=== PATIENT | female | born 1930 | race Caucasian/White ===

== ENCOUNTER 2017-12-13 04:47 | Emergency (ER) | payer MEDICARE, OTHER ==
[2017-12-13 05:01] VITALS: BP 149/65; PULSE 48; RESP 20; TEMP 97.7; O2SAT 100
[2017-12-13] MEDS ORDERED: ASPIRIN 81 MG CHEW TAB ONE (05:06)
[2017-12-13] MEDS ORDERED: NITROGLYCERIN 0.4 MG SL 25 TABS/BTL SL ONE (05:15)
[2017-12-13] MEDS ORDERED: HEPARIN SODIUM - IV 10,000 UNITS/10 ML VIAL IV ONE ×2 (05:15→05:30)
[2017-12-13] MEDS ORDERED: NITROGLYCERIN 2% OINT 1 GM PACKET TOPICAL ONE (05:15)
[2017-12-13] MEDS ORDERED: ASPIRIN 81 MG CHEW TAB CHEW ONE (05:15)
[2017-12-13] MEDS ORDERED: HEPARIN-D5W 25,000 U/250 ML 250 ML IV PRN (05:15)
[2017-12-13 05:23] LABS: HEMATOCRIT 38.4 % (35.0-46.0); HEMOGLOBIN 12.9 GM/DL (11.6-15.3); MEAN CELL VOLUME 95.9 FL (80.0-100.0); MEAN CORPUSCULAR HEMOGLOBIN 32.3 PG (27.0-34.0); MEAN CORPUSCULAR HGB CONC 33.7 % (32.0-36.0); MEAN PLATELET VOLUME 10.7 FL (7.0-11.0); PLATELET COUNT 186 TH/MM3 (150-450); RED BLOOD COUNT 4.01 MIL/MM3 (4.00-5.30); RED CELL DISTRIBUTION WIDTH 14.3 % (11.6-17.2); WHITE BLOOD COUNT 7.3 TH/MM3 (4.0-11.0)
[2017-12-13 05:35] LABS: PROTHROMBIN TIME - PATIENT 10.6 SEC (9.8-11.6)
[2017-12-13 05:50] LABS: ALBUMIN 3.1 GM/DL (3.4-5.0); ALKALINE PHOSPHATASE 70 U/L (45-117); ALT (GPT) 28 U/L (10-53); AST (GOT) 30 U/L (15-37); BICARBONATE 27.6 MEQ/L (21.0-32.0); BLOOD UREA NITROGEN 25 MG/DL (7-18); CALCIUM 9.4 MG/DL (8.5-10.1); CHLORIDE 108 MEQ/L (98-107); CREATININE 1.08 MG/DL (0.50-1.00); GLOMERULAR FILTRATION RATE 48 ML/MIN (>89); GLUCOSE,RANDOM 101 MG/DL (74-106); SODIUM (NA) 141 MEQ/L (136-145); TOTAL BILIRUBIN ADULT 0.5 MG/DL (0.2-1.0); TOTAL PROTEIN 6.3 GM/DL (6.4-8.2); TROPONIN I 0.04 NG/ML (0.02-0.05)
--- NOTE | 2017-12-13 06:42 | PD ---
HPI Chief Complaint: Chest Pain Time Seen by Provider: 05:00 Travel History International Travel<30 days: No Contact w/Intl Traveler<30days: No Traveled to known affect area: No History of Present Illness HPI Patient is a 87-year-old female living in a half-way she was called paramedics because she had right-sided chest pain and was walking around the floors of the half-way complaining of chest pain paramedics arrived they did EKG twelve-lead they thought they saw ST elevations in inferior leads lead II, III and aVF. Patient is completely pain-free vitals within normal limits she was not hypertensive she is not tachycardic and she had no signs of ischemia no nausea no vomiting patient is pleasantly demented and denied chest pain at all repeatedly asked she has no chest pain we do an EKG that shows ST elevations in V4 V5. There were no reciprocal depressions anywhere. I called Dr. Kent's french instructor. He thinks that intervention would be extremely in the pain-free 87-year-old female. Call the family daughter arrives bedside and decides that they would like medical management. Aspirin for 325 is given. And labs are sent family is discussing whether they would like to send her back to the half-way without intervention without hospitalization PFSH Past Medical History High Cholesterol: Yes Dementia: Yes Diabetes: Yes Patient Takes Glucophage: Yes Genitourinary: Yes (HYDRONEPHROSIS) Hypertension: Yes Musculoskeletal: Yes (PREPATELLAR BURSITIS) Thyroid Disease: Yes (HYPOPARATHYROID) Past Surgical History Surgical History: Unable to Obtain Social History Alcohol Use: No Tobacco Use: No Substance Use: No Allergies-Medications (Allergen,Severity, Reaction): Coded Allergies: Milk Containing Products (Verified Allergy, Unknown, 12/13/17) codeine (Verified Allergy, Unknown, 12/13/17) erythromycin base (Verified Allergy, Unknown, 12/13/17) pollen extracts (Verified Allergy, Unknown, 12/13/17) Review of Systems ROS Limitations: Poor Historian Except as stated in HPI: all other systems reviewed are Neg (dementia advanced) Physical Exam Narrative GENERAL: thin body habitus , pt awake alert Ox1 to her name , does not recognize daughter SKIN: Warm and dry. HEAD: Atraumatic. Normocephalic. EYES: Pupils equal and round. No scleral icterus. No injection or drainage. ENT: No nasal bleeding or discharge. Mucous membranes pink and moist. NECK: Trachea midline. No JVD. CARDIOVASCULAR: Regular rate and rhythm. RESPIRATORY: No accessory muscle use. Clear to auscultation. Breath sounds equal bilaterally. GASTROINTESTINAL: Abdomen soft, non-tender, nondistended. Hepatic and splenic margins not palpable. MUSCULOSKELETAL: Extremities without clubbing, cyanosis, or edema. No obvious deformities. NEUROLOGICAL: Awake and alert. No obvious cranial nerve deficits. Motor grossly within normal limits. Five out of 5 muscle strength in the arms and legs. Normal speech. PSYCHIATRIC: demented OX1 . not to time place and does not recognized her daughter who is bedside Data Data Last Documented VS Vital Signs Date Time Temp Pulse Resp B/P (MAP) Pulse Ox O2 Delivery O2 Flow Rate FiO2 12/13/17 07:51 52 17 122/35 (64) 99 12/13/17 05:01 97.7 Orders Orders Aspirin Chew (Aspirin Chew) (12/13/17 05:06) Heparin Inj (Heparin Inj) (12/13/17 05:15) Heparin Inj (Heparin Inj) (12/13/17 11:15) Heparin Inj (Heparin Inj) (12/13/17 11:15) Heparin-D5w 25,000 U/250 Ml (Heparin-D5w (12/13/17 05:15) Act Partial Throm Time (Ptt) (12/13/17 05:05) Prothrombin Time / Inr (Pt) (12/13/17 05:05) Cbc No Diff, Includes Plts (12/13/17 05:05) Troponin I (12/13/17 05:07) Ckmb (Isoenzyme) Profile (12/13/17 05:07) Comprehensive Metabolic Panel (12/13/17 05:07) Nitroglycerin Sl (Nitrostat Sl) (12/13/17 05:15) Nitroglycerin 2% Oint (Nitroglycerin 2% (12/13/17 05:15) Aspirin Chew (Aspirin Chew) (12/13/17 05:15) Heparin Inj (Heparin Inj) (12/13/17 05:30) Ed Discharge Order (12/13/17 06:44) Electrocardiogram (12/13/17 04:53) Labs Laboratory Tests Test 12/13/17 05:09 White Blood Count 7.3 TH/MM3 Red Blood Count 4.01 MIL/MM3 Hemoglobin 12.9 GM/DL Hematocrit 38.4 % Mean Corpuscular Volume 95.9 FL Mean Corpuscular Hemoglobin 32.3 PG Mean Corpuscular Hemoglobin Concent 33.7 % Red Cell Distribution Width 14.3 % Platelet Count 186 TH/MM3 Mean Platelet Volume 10.7 FL Prothrombin Time 10.6 SEC Prothromb Time International Ratio 1.0 RATIO Activated Partial Thromboplast Time 22.4 SEC Blood Urea Nitrogen 25 MG/DL Creatinine 1.08 MG/DL Random Glucose 101 MG/DL Total Protein 6.3 GM/DL Albumin 3.1 GM/DL Calcium Level 9.4 MG/DL Alkaline Phosphatase 70 U/L Aspartate Amino Transf (AST/SGOT) 30 U/L Alanine Aminotransferase (ALT/SGPT) 28 U/L Total Bilirubin 0.5 MG/DL Sodium Level 141 MEQ/L Potassium Level 4.8 MEQ/L Chloride Level 108 MEQ/L Carbon Dioxide Level 27.6 MEQ/L Anion Gap 5 MEQ/L Estimat Glomerular Filtration Rate 48 ML/MIN Total Creatine Kinase 75 U/L Troponin I 0.04 NG/ML [facility] Medical Decision Making Medical Screen Exam Complete: Yes Emergency Medical Condition: Yes Differential Diagnosis chest pain of PNA vs STEMI vs costochondritis vs dementia and complaint of CP possibly not related to Organic cause, Paramedics 12 lead have slight elevation inferiro leads but in our ER 12 lead EKG shows elevation in V4 V5, pt denies CP repeatedly asked of Chest Pain Narrative Course EKG has elevations in V4 V5 no CP , I call Dr Kent who is on for interventional cards he looks at EKG and feels her age and DNR and advanced dementia and pain free state medical management more indicated than catherization , I will call family to ask if they agree with the plan of conservative managemnt . Daugther arrives and she and her sister are offered option of catheterization vs heparin and asa and obsevartion on tele , The daughters decide they would like to refuse all intervention and return to [place] aand there they will discuss " Do Not Hositalize " order and hospice plan. I speak to both daughters several times one bedside and one on the phone . Pt stable first trop returns 0.04 equivocal . pt family refuses admission and heparinization.. Pt sent via ambulance back to [facility] Diagnosis Primary Impression: Chest pain Patient Instructions: Chest Pain (ED), General Instructions Disposition: 03 DISCHARGE TO SNF Condition: Walter Mauricio MD Dec 13, 2017 06:42
[2017-12-13 07:51] VITALS: BP 122/35
[2017-12-13] MEDS ORDERED: HEPARIN SODIUM - IV 10,000 UNITS/10 ML VIAL IV PRN ×2 (11:15)
--- NOTE | 2017-12-13 21:31 | EKG ---
Date Performed: 12/13/2017 Time Performed: 04:53:52 PTAGE: 87 years EKG: SINUS BRADYCARDIA VOLTAGE CRITERIA FOR LVH ST ELEVATION, CONSIDER ANTERIOR INJURY ACUTE [place] Compared to PREVIOUS TRACING , there is now evidence of ST elevation inferiorly and anteriorly and an terolaterally. Suggestive of an acute myocardial infarction. When compared to the prior study, there are significant changes in the anterior and lateral leads. PREVIOUS TRACIN06/06/1998 09.23.29 DOCTOR: Solitario Ortiz Interpretating Date/Time 12/13/2017 21:30:32
== END 2017-12-13 07:52 ==
LOC: NEDAMB 04:47 → NEPE 07:52
DX: R07.9 Chest pain, unspecified (principal); R00.1 Bradycardia, unspecified; I10 Essential (primary) hypertension; E78.00 Pure hypercholesterolemia, unspecified; E11.9 Type 2 diabetes mellitus without complications; E20.9 Hypoparathyroidism, unspecified; F03.90 Unspecified dementia, unspecified severity, without behavioral disturbance, psychotic disturbance, mood disturbance, and anxiety; Z88.5 Allergy status to narcotic agent; Z88.1 Allergy status to other antibiotic agents
CPT/HCPCS: 80053; 82550; 84484; 85027; 85610; 85730; 93005

== ENCOUNTER 2018-01-17 20:58 | Inpatient (IN) | payer MEDICARE, OTHER ==
[~2018-01-17] VITALS: Ht 154.9 cm; Wt 56.0 kg
[2018-01-17 21:07] VITALS: BP 158/76; PULSE 50; RESP 18; TEMP 98.1; O2SAT 95
[2018-01-17] MEDS ORDERED: ACETAMINOPHEN 500 MG CPLT PO ONE (21:15)
--- NOTE | 2018-01-17 21:16 | PD ---
HPI Chief Complaint: Fall Time Seen by Provider: 21:01 Travel History International Travel<30 days: No Contact w/Intl Traveler<30days: No Traveled to known affect area: No History of Present Illness HPI The patient is a 87-year-old female who presents to the emergency department via EMS after she was found lying prone on the floor at the long term and groaning. The patient has a history of dementia, the patient is unsure if there was any loss of consciousness. The patient was noted to have left facial swelling, some bleeding from the left nare, and some bruising to the left forearm. The patient does not take any anticoagulants according to EMS. The patient does complain of left facial pain and left arm pain. She denies any chest pain, shortness breath, nausea, vomiting, or abdominal pain. She is a somewhat limited historian, but does respond to her name and follows simple commands. Symptoms are moderate. Possibly exacerbated after falling. PFSH Past Medical History High Cholesterol: Yes Dementia: Yes Diabetes: Yes Genitourinary: Yes (HYDRONEPHROSIS) Hypertension: Yes Musculoskeletal: Yes (PREPATELLAR BURSITIS) Thyroid Disease: Yes (HYPOPARATHYROID) Social History Alcohol Use: No Tobacco Use: No Substance Use: No Allergies-Medications (Allergen,Severity, Reaction): Coded Allergies: Milk Containing Products (Verified Allergy, Unknown, 01/17/18) codeine (Verified Allergy, Unknown, 01/17/18) erythromycin base (Verified Allergy, Unknown, 01/17/18) pollen extracts (Verified Allergy, Unknown, 01/17/18) Reported Meds & Prescriptions Reported Meds & Active Scripts Active Mayer (Hydrocodone-Acetaminophen) 5 Mg-325 Mg Tab 1 Tab PO Q6H PRN Claritin (Loratadine) 10 Mg Cap 10 Mg PO DAILY 10 Days Augmentin Es-600 Liq (Amoxicillin-Clavulanate Liq) 600-42.9 Mg/5 Ml Susp 600 Mg PO BID 10 Days Not for adults, adolescents, or children >/= 40kg. Not interchangeable with 200 mg/5 mL or 400 mg/5 mL due to clavulanic acid. Reported Melatonin 5 Mg Tab 3 Mg PO HS Pravastatin 40 Mg Tab 40 Mg PO DAILY Nuedexta 20-10 mg (Dextromethorphan HBr-Quinidine) 20 Mg-10 Mg Cap 1 Cap PO BID Buspirone (Buspirone HCl) 10 Mg Tab 20 Mg PO BID Metformin (Metformin HCl) 500 Mg Tab 500 Mg PO DAILY With a meal Lisinopril-Hctz 20-12.5 Mg Tab 1 Tab PO DAILY Aspirin 81 Mg Chew 81 Mg CHEW DAILY Amlodipine (Amlodipine Besylate) 2.5 Mg Tab 2.5 Mg PO DAILY Review of Systems Except as stated in HPI: all other systems reviewed are Neg HENT: Positive: Headaches, Nosebleed, Other (Facial pain), No: Neck Pain Cardiovascular: No: Chest Pain or Discomfort Respiratory: No: Shortness of Breath Gastrointestinal: No: Nausea, Vomiting, Abdominal Pain Musculoskeletal: Positive: Pain (Left arm pain and bruising) Neurologic: Positive: Headache, No: Change in Mentation, Paresthesia, Sensory Disturbance Physical Exam Narrative GENERAL: Awake, alert, pleasant 87-year-old female who appears her stated age and is in no acute respiratory distress. SKIN: Focused skin assessment warm/dry. HEAD: Left facial edema noted around the left periorbital area and left maxilla and mandible.. EYES: Pupils equal and round. Pupils are 2 mm bilateral and reactive. Unable to assess EOMs secondary to swelling, but no visible hyphema. Significant left periorbital edema noted. ENT: No visible septal hematoma. Dry blood in the left nare. NECK: Trachea midline. No JVD. Cervical collar in place. CARDIOVASCULAR: Regular, bradycardic with a heart rate in the 40s. RESPIRATORY: No accessory muscle use. Clear to auscultation. Breath sounds equal bilaterally. GASTROINTESTINAL: Abdomen soft, non-tender, nondistended. No rebound tenderness. MUSCULOSKELETAL: Hematoma noted to the left humerus. Patient is able to abduct and extend the left shoulder as well as flex and extend the left elbow. NEUROLOGICAL: Awake and alert. No obvious cranial nerve deficits. Motor grossly within normal limits. Normal speech. Patient is oriented to her name and follow simple commands, but does not know the month or year. Back: No tenderness over the thoracic or lumbar vertebrae. PSYCHIATRIC: Appropriate mood and affect; insight and judgment normal. Data Data Last Documented VS Vital Signs Date Time Temp Pulse Resp B/P (MAP) Pulse Ox O2 Delivery O2 Flow Rate FiO2 01/17/18 21:16 49 15 96 Room Air 01/17/18 21:07 98.1 158/76 (103) Orders Orders Ct Facial Bones W/O Iv Cont (01/17/18 ) Ct Brain W/O Iv Contrast(Rout) (01/17/18 ) Ct Cerv Spine W/O Contrast (01/17/18 ) Humerus (Min 2vws) (01/17/18 ) Complete Blood Count With Diff (01/17/18 21:07) Basic Metabolic Panel (Bmp) (01/17/18 21:07) Creatine Kinase (Cpk) (01/17/18 21:07) Acetaminophen (Tylenol) (01/17/18 21:15) Acetamin-Hydrocod 325-5 Mg (Mayer 5-325 (01/17/18 22:30) Ondansetron Inj (Zofran Inj) (01/17/18 22:45) Sodium Chlorid 0.9% 500 Ml Inj (Ns 500 M (01/17/18 22:45) Ondansetron Inj (Zofran Inj) (01/17/18 22:43) Admit Order (Ed Use Only) (01/17/18 22:56) Labs Laboratory Tests Test 01/17/18 21:15 White Blood Count 6.7 TH/MM3 Red Blood Count 4.10 MIL/MM3 Hemoglobin 13.1 GM/DL Hematocrit 39.0 % Mean Corpuscular Volume 95.0 FL Mean Corpuscular Hemoglobin 31.9 PG Mean Corpuscular Hemoglobin Concent 33.6 % Red Cell Distribution Width 13.3 % Platelet Count 163 TH/MM3 Mean Platelet Volume 10.3 FL Neutrophils (%) (Auto) 52.2 % Lymphocytes (%) (Auto) 36.1 % Monocytes (%) (Auto) 7.9 % Eosinophils (%) (Auto) 3.1 % Basophils (%) (Auto) 0.7 % Neutrophils # (Auto) 3.5 TH/MM3 Lymphocytes # (Auto) 2.4 TH/MM3 Monocytes # (Auto) 0.5 TH/MM3 Eosinophils # (Auto) 0.2 TH/MM3 Basophils # (Auto) 0.0 TH/MM3 CBC Comment DIFF FINAL Differential Comment Blood Urea Nitrogen 20 MG/DL Creatinine 1.06 MG/DL Random Glucose 146 MG/DL Calcium Level 9.3 MG/DL Sodium Level 140 MEQ/L Potassium Level 3.9 MEQ/L Chloride Level 102 MEQ/L Carbon Dioxide Level 30.2 MEQ/L Anion Gap 8 MEQ/L Estimat Glomerular Filtration Rate 49 ML/MIN Total Creatine Kinase 76 U/L MDM Medical Decision Making Medical Screen Exam Complete: Yes Emergency Medical Condition: Yes Medical Record Reviewed: Yes Interpretation(s) Laboratory Tests Test 01/17/18 21:15 White Blood Count 6.7 TH/MM3 Red Blood Count 4.10 MIL/MM3 Hemoglobin 13.1 GM/DL Hematocrit 39.0 % Mean Corpuscular Volume 95.0 FL Mean Corpuscular Hemoglobin 31.9 PG Mean Corpuscular Hemoglobin Concent 33.6 % Red Cell Distribution Width 13.3 % Platelet Count 163 TH/MM3 Mean Platelet Volume 10.3 FL Neutrophils (%) (Auto) 52.2 % Lymphocytes (%) (Auto) 36.1 % Monocytes (%) (Auto) 7.9 % Eosinophils (%) (Auto) 3.1 % Basophils (%) (Auto) 0.7 % Neutrophils # (Auto) 3.5 TH/MM3 Lymphocytes # (Auto) 2.4 TH/MM3 Monocytes # (Auto) 0.5 TH/MM3 Eosinophils # (Auto) 0.2 TH/MM3 Basophils # (Auto) 0.0 TH/MM3 CBC Comment DIFF FINAL Differential Comment Blood Urea Nitrogen 20 MG/DL Creatinine 1.06 MG/DL Random Glucose 146 MG/DL Calcium Level 9.3 MG/DL Sodium Level 140 MEQ/L Potassium Level 3.9 MEQ/L Chloride Level 102 MEQ/L Carbon Dioxide Level 30.2 MEQ/L Anion Gap 8 MEQ/L Estimat Glomerular Filtration Rate 49 ML/MIN Total Creatine Kinase 76 U/L Last Impressions Maxillofacial CT 01/17/18 0000 Signed Impressions: Service Date/Time: Wednesday, January 17, 2018 21:25 - CONCLUSION: 1. Displaced fracture through the floor the left orbit with slight herniation of the inferior oblique musculature. 2. Left nasal fracture. Marcelo Cardona MD Humerus X-Ray 01/17/18 0000 Signed Impressions: Service Date/Time: Wednesday, January 17, 2018 21:16 - CONCLUSION: No acute fracture. Marcelo Cardona MD Head CT 01/17/18 0000 Signed Impressions: Service Date/Time: Wednesday, January 17, 2018 21:25 - CONCLUSION: 1. No acute intracranial abnormality. 2. Left nasal fracture. Marcelo Cardona MD Cervical Spine CT 01/17/18 0000 Signed Impressions: Service Date/Time: Wednesday, January 17, 2018 21:25 - CONCLUSION: 1. No fracture or subluxation. 2. Multilevel degenerative changes. 3. Degenerative retrolisthesis C3 on 4 Marcelo Cardona MD Differential Diagnosis Differential diagnosis includes mechanical fall, syncope, closed head injury, intra-cranial hemorrhage, left facial fracture, contusion, hematoma, left humerus fracture, epistaxis, coagulopathy, thrombocytopenia. Narrative Course IV was established, labs are drawn and sent, and the patient was placed on cardiac telemetry monitoring and continuous pulse oximetry monitoring. CT of the brain, facial bones, cervical spine were ordered. X-ray of the left humerus was ordered. CT the brain is negative. CT cervical spine reveals no fracture, cervical collar was removed. CT the facial bones reveals fracture of the left inferior orbital wall with mild herniation of musculature but no impingement. Patient has significant swelling, EOMs were unable to be assessed. The patient does have significant left-sided facial swelling. I doubt acute surgical management with the amount of significant swelling. The patient may benefit from outpatient or maxillofacial evaluation once the swelling has improved. Therefore, the patient will be discharged back to the assisted living facility, is advised to apply ice over the affected area, Augmentin as directed, sinus precautions. I did have a discussion with the family at bedside. I also had a discussion regarding transfer to [facility] for the fracture, however, after discussion it was agreed the patient would follow-up outpatient locally. However, prior to discharge back to the assisted living facility the patient had an episode of emesis. There was blood in the emesis, most likely related to the nosebleed and swallowing of blood. However, she did have several episodes. The patient does live in the assisted living facility, not a full long term. Therefore, the patient will be a 23 hour observation for IV fluids and antiemetics. I discussed the patient with the trauma surgeon, Dr. Robles, and after discussion he states the patient can be admitted to the medical service as it appears it is more related to nausea and vomiting secondary to swallowing of blood and there is no acute surgical management. Therefore, the on-call medical service was paged for observation. Physician Communication Physician Communication The on-call medical service was paged for observation. I discussed the patient with Dr. Bartholomew who agrees with 23 hour observation. Diagnosis Primary Impression: Fracture of inferior orbital wall Qualified Codes: S02.32XA - Fracture of orbital floor, left side, initial encounter for closed fracture Additional Impressions: Traumatic hematoma of face Qualified Codes: S00.83XA - Contusion of other part of head, initial encounter Nasal fracture Qualified Codes: S02.2XXA - Fracture of nasal bones, initial encounter for closed fracture Contusion of left arm Qualified Codes: S40.022A - Contusion of left upper arm, initial encounter Hematemesis Qualified Codes: K92.0 - Hematemesis Admitting Information Admitting Physician Requests: Observation Referrals: Corey Paulino DDS call for appointment Call for an appointment on an outpatient basis to be seen in 1 week Patient Instructions: General Instructions Additional Instructions: Sinus precautions. No blowing nose. Claritin and Augmentin as directed. Apply ice to the left side of the face. Please provide the family a copy of the CT results and the patient a copy of the CT results at discharge. Call on Friday to schedule outpatient follow-up with oromaxillofacial surgery. Mayer as needed for pain. Apply ice to the left side of the face and left arm. Med/Other Pt SpecificInfo: Prescription(s) given Scripts Hydrocodone-Acetaminophen (Mayer) 5 Mg-325 Mg Tab 1 TAB PO Q6H Y for PAIN, #15 TAB 0 Refills Prov: Fabrizio Eldridge MD 01/17/18 Loratadine (Claritin) 10 Mg Cap 10 MG PO DAILY for Allergy Management for 10 Days, #10 CAP 0 Refills Prov: Fabrizio Eldridge MD 01/17/18 Amoxicillin-Clavulanate Liq (Augmentin Es-600 Liq) 600-42.9 Mg/5 Ml Susp 600 MG PO BID for Infection for 10 Days, ML 0 Refills Not for adults, adolescents, or children >/= 40kg. Not interchangeable with 200 mg/5 mL or 400 mg/5 mL due to clavulanic acid. Prov: Fabrizio Eldridge MD 01/17/18 Condition: Stable Fabrizio Eldridge MD Jan 17, 2018 21:16
[2018-01-17 21:27] LABS: AUTOMATED NEUTROPHIL # 3.5 TH/MM3 (1.8-7.7); BASOPHIL % 0.7 % (0.0-2.0); EOSINOPHIL # 0.2 TH/MM3 (0-0.4); EOSINOPHIL % 3.1 % (0.0-4.0); HEMOGLOBIN 13.1 GM/DL (11.6-15.3); LYMPH % 36.1 % (9.0-44.0); LYMPHOCYTE # 2.4 TH/MM3 (1.0-4.8); MEAN CORPUSCULAR HEMOGLOBIN 31.9 PG (27.0-34.0); MEAN CORPUSCULAR HGB CONC 33.6 % (32.0-36.0); MEAN PLATELET VOLUME 10.3 FL (7.0-11.0); MONO % 7.9 % (0.0-8.0); MONOCYTE # 0.5 TH/MM3 (0-0.9); NEUT % 52.2 % (16.0-70.0); PLATELET COUNT 163 TH/MM3 (150-450); RED CELL DISTRIBUTION WIDTH 13.3 % (11.6-17.2); WHITE BLOOD COUNT 6.7 TH/MM3 (4.0-11.0)
[2018-01-17] MEDS ORDERED: PRAV40TA2 PO (21:27)
[2018-01-17] MEDS ORDERED: AMLO2.5T PO (21:27)
[2018-01-17] MEDS ORDERED: ASPI-516 CHEW (21:27)
[2018-01-17] MEDS ORDERED: BUSP10TA PO (21:27)
[2018-01-17] MEDS ORDERED: MELA5 PO (21:27)
[2018-01-17] MEDS ORDERED: LISI20TA PO (21:27)
[2018-01-17] MEDS ORDERED: NUED20CA PO (21:27)
[2018-01-17] MEDS ORDERED: METF500T PO (21:27)
--- NOTE | 2018-01-17 21:41 | RADRPT ---
EXAM DATE/TIME: 01/17/2018 21:16 [facility] COMPARISON: No previous studies available for comparison. INDICATIONS : Pain in left humerus post fall today. MEDICAL HISTORY : Unobtainable. SURGICAL HISTORY : Unobtainable. ENCOUNTER: Initial ACUITY: 1 day PAIN SCORE: Non-responsive. LOCATION: Left Humerus. FINDINGS: Two view examination of the left humerus demonstrates no evidence of fracture or dislocation. Bony m ineralization is normal. Soft tissue swelling. CONCLUSION: No acute fracture. Marcelo Cardona MD on January 17, 2018 at 21:38 Board Certified Radiologist. This report was verified electronically.
--- NOTE | 2018-01-17 21:42 | RADRPT ---
EXAM DATE/TIME: 01/17/2018 21:25 [facility] COMPARISON: CT FACIAL BONES W/O CONTRAST, January 17, 2018, 21:25. INDICATIONS : Trauma. Fell on left side off head. RADIATION DOSE: 56.35 CTDIvol (mGy) MEDICAL HISTORY : Dementia. Hypertension. SURGICAL HISTORY : None. ENCOUNTER: Initial ACUITY: 1 day PAIN SCALE: 0/10 LOCATION: Left cranial TECHNIQUE: Multiple contiguous axial images were obtained of the head. Using automated exposure control and adj ustment of the mA and/or kV according to patient size, radiation dose was kept as low as reasonably a chievable to obtain optimal diagnostic quality images. DICOM format image data is available electro nically for review and comparison. FINDINGS: CEREBRUM: The ventricles are normal for age. No evidence of midline shift, mass lesion, hemorrhage or acute in farction. No extra-axial fluid collections are seen. POSTERIOR FOSSA: The cerebellum and brainstem are intact. The 4th ventricle is midline. The cerebellopontine angle i s unremarkable. EXTRACRANIAL: The visualized portion of the orbits is intact. SKULL: The calvaria is intact. No evidence of skull fracture. Left sided facial soft tissue swelling. Opaci fication left maxillary sinus. Left nasal fracture CONCLUSION: 1. No acute intracranial abnormality. 2. Left nasal fracture. Marcelo Cardona MD on January 17, 2018 at 21:39 Board Certified Radiologist. This report was verified electronically.
--- NOTE | 2018-01-17 21:45 | RADRPT ---
EXAM DATE/TIME: 01/17/2018 21:25 [facility] COMPARISON: No previous studies available for comparison. INDICATIONS : Trauma. Fell on left side of face. RADIATION DOSE: 21.96 CTDIvol (mGy) MEDICAL HISTORY : Dementia. Hypertension. SURGICAL HISTORY : None. ENCOUNTER: Initial ACUITY: 1 day PAIN SCORE: 0/10 LOCATION: Left facial TECHNIQUE: Volumetric scanning of the facial bones was performed. Using automated exposure control and adjustme nt of the mA and/or kV according to patient size, radiation dose was kept as low as reasonably achiev able to obtain optimal diagnostic quality images. DICOM format image data is available electronicall y for review and comparison. FINDINGS: ORBITS: Right orbit intact. Displaced fracture along the floor the left orbit. No impingement upon extraocula r muscles. The inferior oblique musculature slightly herniates through the defect. NASAL BONE: Left nasal fracture slightly depressed. ZYGOMATIC ARCHES: Symmetric without evidence of fracture. SINUSES: The maxillary, ethmoid and frontal sinuses are intact. No air-fluid levels seen. NASAL CAVITY: The nasal septum is intact and midline. The lacrimal ducts are intact. SOFT TISSUES: No radiopaque foreign bodies seen. Left facial soft-tissue swelling/hematoma is seen. INTRACRANIAL: No intracranial air seen. CRIBIFORM PLATE: Grossly intact. CONCLUSION: 1. Displaced fracture through the floor the left orbit with slight herniation of the inferior oblique musculature. 2. Left nasal fracture. Marcelo Cardona MD on January 17, 2018 at 21:40 Board Certified Radiologist. This report was verified electronically.
--- NOTE | 2018-01-17 21:46 | RADRPT ---
EXAM DATE/TIME: 01/17/2018 21:25 [place] COMPARISON: No previous studies available for comparison. INDICATIONS : Trauma. Fall. RADIATION DOSE: 13.52 CTDIvol (mGy) MEDICAL HISTORY : Dementia. Hypertension. SURGICAL HISTORY : None. ENCOUNTER: Initial ACUITY: 1 day PAIN SCALE: 0/10 LOCATION: neck TECHNIQUE: Volumetric scanning of the cervical spine was performed. Multiplanar reconstructions in the sagittal, coronal and oblique axial planes were performed. Using automated exposure control and adjustment o f the mA and/or kV according to patient size, radiation dose was kept as low as reasonably achievable to obtain optimal diagnostic quality images. DICOM format image data is available electronically f or review and comparison. FINDINGS: VERTEBRAE: Normal vertebral body height. Multilevel degenerative changes. ALIGNMENT: Retrolisthesis C3 on 4. C2-C3: The bony spinal canal is normal in size. No evidence of disc bulge or herniation. The neural forami na are bilaterally patent. C3-C4: The bony spinal canal is normal in size. No evidence of disc bulge or herniation. The neural forami na are bilaterally patent. C4-C5: The bony spinal canal is normal in size. No evidence of disc bulge or herniation. The neural forami na are bilaterally patent. C5-C6: The bony spinal canal is normal in size. No evidence of disc bulge or herniation. The neural forami na are bilaterally patent. C6-C7: The bony spinal canal is normal in size. No evidence of disc bulge or herniation. The neural forami na are bilaterally patent. C7-T1: The bony spinal canal is normal in size. No evidence of disc bulge or herniation. The neural forami na are bilaterally patent. CONCLUSION: 1. No fracture or subluxation. 2. Multilevel degenerative changes. 3. Degenerative retrolisthesis C3 on 4 Marcelo Cardona MD on January 17, 2018 at 21:42 Board Certified Radiologist. This report was verified electronically.
[2018-01-17 21:57] LABS: BICARBONATE 30.2 MEQ/L (21.0-32.0); CALCIUM 9.3 MG/DL (8.5-10.1); CREATININE 1.06 MG/DL (0.50-1.00)
[2018-01-17] MEDS ORDERED: AMOXSUS PO (22:23)
[2018-01-17] MEDS ORDERED: NORC5TAB PO (22:23)
[2018-01-17] MEDS ORDERED: CLAR10CA3 PO (22:23)
[2018-01-17] MEDS ORDERED: ACETAMINOPHEN/HYDROcodone 325 MG/5 MG TAB PO ONE (22:30)
[2018-01-17] MEDS ORDERED: ONDANSETRON HCL 4 MG/2 ML VIAL ONE (22:43)
[2018-01-17] MEDS ORDERED: SODIUM CHLORID 0.9% 500 ML INJ 500 ML IV ONE (22:45)
[2018-01-17] MEDS ORDERED: ONDANSETRON HCL 4 MG/2 ML VIAL IV PUSH ONE (22:45)
--- NOTE | 2018-01-17 22:59 | HHI.HP ---
[facility] Service [facility] Primary Care Physician Zita Jacobs MD Admission Diagnosis Inferior orbital wall fracture, hematemesis, epistaxis, CHI Diagnoses: (1) Fall Diagnosis: Principal (2) Orbital floor fracture Diagnosis: Principal (3) Traumatic hematoma of face Diagnosis: Principal (4) Epistaxis Diagnosis: Principal (5) DM (diabetes mellitus) Diagnosis: Principal Travel History International Travel<30 Days: No Contact w/Intl Traveler <30 Da: No Traveled to Known Affected Are: No History of Present Illness This is an 87-year-old female with a PMH of HTN, Hyperlipidemia, DM and Dementia who is brought to the ER by EMS after a fall with significant left- sided facial swelling and hematoma. Patient currently [facility] resident, fall was unwitnessed however patient does not believe she lost consciousness. Not on anticoagulation. On arrival, BP 158/76, HR 50, O2 sat 95% on RA, Afebrile. CBC unremarkable. Chemistry at baseline. CT Head with no acute findings, left nasal fracture. CT C-spine with no acute fracture. CT Maxillofacial with displaced fracture through floor of left orbit with slight herniation of inferior oblique musculature, left nasal fracture. Humerus X-ray no acute fracture. Pt to be d/c'd from ER w/ outpatient ENT follow up as no emergent intervention needed, however had episode of epistaxis w/ subsequent nausea/ vomiting. Pt [facility] resident, unsafe d/c home at this time. Review of Systems Except as stated in HPI: all other systems reviewed are Neg ROS: 14 point review of systems otherwise negative. Past Family Social History Past Medical History PMH: HTN, Hyperlipidemia, DM and Dementia Past Surgical History PAST SURGICAL HISTORY: None Allergies: Coded Allergies: Milk Containing Products (Verified Allergy, Unknown, 01/17/18) codeine (Verified Allergy, Unknown, 01/17/18) erythromycin base (Verified Allergy, Unknown, 01/17/18) pollen extracts (Verified Allergy, Unknown, 01/17/18) Family History PAST FAMILY HISTORY: Reviewed. No h/o DM or CAD Social History PAST SOCIAL HISTORY: Negative for alcohol, tobacco or drugs. Physical Exam Vital Signs Vital Signs Date Time Temp Pulse Resp B/P (MAP) Pulse Ox O2 Delivery O2 Flow Rate FiO2 01/17/18 21:16 49 15 96 Room Air 01/17/18 21:07 98.1 50 18 158/76 (103) 95 Physical Exam PE: GENERAL: Elderly white female in no acute distress. Family at bedside. HEENT: PERRLA, EOMI. No scleral icterus or conjunctival pallor. No lid lag or facial droop. Significant left-sided facial swelling/hematoma due to injury CARDIOVASCULAR: Regular rate and rhythm. No obvious murmurs to auscultation. No chest tenderness to palpation. RESPIRATORY: No obvious rhonchi or wheezing. Clear to auscultation. Breath sounds equal bilaterally. GASTROINTESTINAL: Abdomen soft, non-tender, nondistended. BS normal. MUSCULOSKELETAL: Extremities without clubbing, cyanosis, or edema. No obvious deformities. NEUROLOGICAL: Awake, alert and oriented x4. No focal neurologic deficits. Moving both upper and lower extremities spontaneously. Laboratory Laboratory Tests Test 01/17/18 21:15 White Blood Count 6.7 Red Blood Count 4.10 Hemoglobin 13.1 Hematocrit 39.0 Mean Corpuscular Volume 95.0 Mean Corpuscular Hemoglobin 31.9 Mean Corpuscular Hemoglobin Concent 33.6 Red Cell Distribution Width 13.3 Platelet Count 163 Mean Platelet Volume 10.3 Neutrophils (%) (Auto) 52.2 Lymphocytes (%) (Auto) 36.1 Monocytes (%) (Auto) 7.9 Eosinophils (%) (Auto) 3.1 Basophils (%) (Auto) 0.7 Neutrophils # (Auto) 3.5 Lymphocytes # (Auto) 2.4 Monocytes # (Auto) 0.5 Eosinophils # (Auto) 0.2 Basophils # (Auto) 0.0 CBC Comment DIFF FINAL Differential Comment Blood Urea Nitrogen 20 Creatinine 1.06 Random Glucose 146 Calcium Level 9.3 Sodium Level 140 Potassium Level 3.9 Chloride Level 102 Carbon Dioxide Level 30.2 Anion Gap 8 Estimat Glomerular Filtration Rate 49 Total Creatine Kinase 76 Result Diagram: 01/17/18211401/17/182114 Caprini VTE Risk Assessment Caprini VTE Risk Assessment: No/Low Risk (score <= 1) Caprini Risk Assessment Model Point Value = 1 Point Value = 2 Point Value = 3 Point Value = 5 Age 41-60 Minor surgery BMI > 25 kg/m2 Swollen legs Varicose veins or History of unexplained or recurrent spontaneous Oral contraceptives or hormone replacement Sepsis (< 1 month) Serious lung disease, including pneumonia (< 1 month) Abnormal pulmonary function Acute myocardial infarction Congestive heart failure (< 1 month) History of inflammatory bowel disease Medical patient at bed rest Age 61-74 Arthroscopic surgery Major open surgery (> 45 min) Laparoscopic surgery (> 45 min) Malignancy Confined to bed (> 72 hours) Immobilizing plaster cast Central venous access Age >= 75 History of VTE Family history of VTE Factor V Leiden Prothrombin [id number] Lupus anticoagulant Anticardiolipin antibodies Elevated serum homocysteine Heparin-induced thrombocytopenia Other congenital or acquired thrombophilia Stroke (< 1 month) Elective arthroplasty Hip, pelvis, or leg fracture Acute spinal cord injury (< 1 month) Prophylaxis Regimen Total Risk Factor Score Risk Level Prophylaxis Regimen 0-1 Low Early ambulation 2 Moderate Order ONE of the following: *Sequential Compression Device (SCD) *Heparin 5000 units SQ BID 3-4 Higher Order ONE of the following medications: *Heparin 5000 units SQ TID *Enoxaparin/Lovenox 40 mg SQ daily (WT < 150 kg, CrCl > 30 mL/min) *Enoxaparin/Lovenox 30 mg SQ daily (WT < 150 kg, CrCl > 10-29 mL/min) *Enoxaparin/Lovenox 30 mg SQ BID (WT < 150 kg, CrCl > 30 mL/min) AND/OR *Sequential Compression Device (SCD) 5 or more Highest Order ONE of the following medications: *Heparin 5000 units SQ TID (Preferred with Epidurals) *Enoxaparin/Lovenox 40 mg SQ daily (WT < 150 kg, CrCl > 30 mL/min) *Enoxaparin/Lovenox 30 mg SQ daily (WT < 150 kg, CrCl > 10-29 mL/min) *Enoxaparin/Lovenox 30 mg SQ BID (WT < 150 kg, CrCl > 30 mL/min) AND *Sequential Compression Device (SCD) Assessment and Plan Problem List: (1) Fall ICD Code: W19.XXXA - Unspecified fall, initial encounter (2) Orbital floor fracture ICD Code: S02.30XA - Fracture of orbital floor, unspecified side, initial encounter for closed fracture (3) Traumatic hematoma of face ICD Code: S00.83XA - Contusion of other part of head, initial encounter Status: Acute (4) Epistaxis ICD Code: R04.0 - Epistaxis (5) DM (diabetes mellitus) ICD Code: E11.9 - Type 2 diabetes mellitus without complications Assessment and Plan A/P: 1. Fall: s/p mechanical fall at [facility], unwitnessed, pt does not believe she lost consciousness. CT Head/C-Spine w/ no acute findings, images reviewed by me. 2. Left Orbital Floor Fx: secondary to above, CT Maxillofacial w/ displaced fracture through floor of left orbit with slight herniation of inferior oblique musculature, images reviewed by me, no impingement, no emergent need for surgical intervention, pt to follow up w/ ENT as outpatient upon discharge. 3. Left Facial Trauma: w/ associated nasal fracture, s/p eval by Dr. Robles , pt appropriate for medical admission for observation. Analgesics/ antiemetics. Ice packs. 4. Epistaxis: secondary to above, w/ associated nausea/vomiting, bleeding now controlled. Hemodynamically stable. Will monitor overnight, repeat labs in am. 5. DM: Sliding scale w/ Accu-checks. Hold Metformin for now 6. DVT Prophylaxis: SCD/Teds 7. Social work for d/c planning as needed. 8. Case discussed w/ ER physician at length, labs/records/imaging reviewed by me. Problem Qualifiers (1) Traumatic hematoma of face: Qualified Codes: S00.83XA - Contusion of other part of head, initial encounter Fe Bartholomew MD Jan 17, 2018 22:59
[2018-01-17] MEDS ORDERED: SODIUM CHLORIDE 0.9% FLUSH 10 ML FLUSH IV FLUSH PRN (23:00)
[2018-01-17] MEDS ORDERED: SENNOSIDES 8.6 MG TAB PO PRN (23:00)
[2018-01-17] MEDS ORDERED: LACTULOSE SYRUP 20 GM/30 ML CUP PO PRN (23:00)
[2018-01-17] MEDS ORDERED: GLUCAGON 1 MG/ML VIAL OTHER PRN (23:00)
[2018-01-17] MEDS ORDERED: DEXTROSE 50% IN WATER 50 ML VIAL(D50) IV PUSH PRN (23:00)
[2018-01-17] MEDS ORDERED: MAGNESIUM HYDROXIDE SUSP 30 ML CUP PO PRN (23:00)
[2018-01-17] MEDS ORDERED: BISACODYL 10 MG SUPP RECTAL PRN (23:00)
[2018-01-17] MEDS ORDERED: ONDANSETRON HCL 4 MG/2 ML VIAL IVP PRN (23:00)
[2018-01-17] MEDS ORDERED: MORPHINE SULFATE 2 MG/ML SYRINGE IV PUSH PRN (23:00)
[2018-01-18] VITALS (7 sets, daily range): BP systolic 100–127; BP diastolic 50–60; PULSE 54–63; RESP 16–18; TEMP 97.7–99; O2SAT 93–99
[2018-01-18] MEDS: SODIUM CHLOR 0.9% 1000 ML INJ 1,000 ML IV SCH ×3 (00:15→16:08)
[2018-01-18 07:55] LABS: AUTOMATED NEUTROPHIL # 5.3 TH/MM3 (1.8-7.7); BASOPHIL % 0.2 % (0.0-2.0); HEMATOCRIT 32.5 % (35.0-46.0); HEMOGLOBIN 10.9 GM/DL (11.6-15.3); LYMPH % 18.5 % (9.0-44.0); LYMPHOCYTE # 1.3 TH/MM3 (1.0-4.8); MEAN CELL VOLUME 95.5 FL (80.0-100.0); MEAN CORPUSCULAR HEMOGLOBIN 31.9 PG (27.0-34.0); MEAN CORPUSCULAR HGB CONC 33.4 % (32.0-36.0); MEAN PLATELET VOLUME 11.3 FL (7.0-11.0); MONO % 7.6 % (0.0-8.0); MONOCYTE # 0.5 TH/MM3 (0-0.9); NEUT % 73.7 % (16.0-70.0); PLATELET COUNT 133 TH/MM3 (150-450); RED CELL DISTRIBUTION WIDTH 13.5 % (11.6-17.2); WHITE BLOOD COUNT 7.2 TH/MM3 (4.0-11.0)
[2018-01-18] MEDS: INSULIN ASPART SUPPLEMENTAL SCALE SQ SCH ×4 (08:00→20:57)
[2018-01-18 08:21] LABS: ALBUMIN 2.8 GM/DL (3.4-5.0); ALT (GPT) 20 U/L (10-53); AST (GOT) 22 U/L (15-37); BICARBONATE 28.4 MEQ/L (21.0-32.0); BLOOD UREA NITROGEN 20 MG/DL (7-18); CALCIUM 8.8 MG/DL (8.5-10.1); CHLORIDE 105 MEQ/L (98-107); CREATININE 1.01 MG/DL (0.50-1.00); GLOMERULAR FILTRATION RATE 52 ML/MIN (>89); GLUCOSE,RANDOM 168 MG/DL (74-106); SODIUM (NA) 139 MEQ/L (136-145)
[2018-01-18 08:24] LABS: ALKALINE PHOSPHATASE 64 U/L (45-117); TOTAL BILIRUBIN ADULT 0.2 MG/DL (0.2-1.0)
[2018-01-18] MEDS: SODIUM CHLORIDE 0.9% FLUSH 10 ML FLUSH IV FLUSH SCH ×2 (09:00→20:57)
[2018-01-18] MEDS ORDERED: DEXTROMETHORPHAN HBR QUINIDINE PO SCH (09:00)
[2018-01-18] MEDS: DOCUSATE SODIUM 50 MG/SENNA 8.6 MG TAB PO SCH ×2 (09:56→20:57)
[2018-01-18] MEDS: AMOXICILLIN/CLAVULANATE K 875 MG TAB PO SCH ×2 (09:56→21:00)
[2018-01-18] MEDS: busPIRone HCL 10 MG TAB PO SCH ×2 (09:56→20:57)
--- NOTE | 2018-01-18 13:06 | HHI.PR ---
Subjective Remarks The patient denied any pain. She was not sure what happened to her. She says she does not have much of an appetite right now. Discussed with nursing. Objective Vitals Vital Signs Date Time Temp Pulse Resp B/P (MAP) Pulse Ox O2 Delivery O2 Flow Rate FiO2 01/18/18 11:58 98.2 54 16 100/50 (67) 99 01/18/18 08:10 97.7 62 18 127/58 (81) 97 01/18/18 04:07 56 17 107/53 (71) 93 01/18/18 00:29 98.1 63 17 101/51 (68) 95 01/17/18 21:16 49 15 96 Room Air 01/17/18 21:07 98.1 50 18 158/76 (103) 95 I/O 01/17/18 01/17/18 01/17/18 01/18/18 01/18/18 01/18/18 07:00 15:00 23:00 07:00 15:00 23:00 Intake Total 1500 ml Balance 1500 ml Intake IV Total 1500 ml Result Diagram: 01/18/18 0615 01/18/18 0615 Imaging Last Impressions Maxillofacial CT 01/17/18 0000 Signed Impressions: Service Date/Time: Wednesday, January 17, 2018 21:25 - CONCLUSION: 1. Displaced fracture through the floor the left orbit with slight herniation of the inferior oblique musculature. 2. Left nasal fracture. Marcelo Cardona MD Humerus X-Ray 01/17/18 0000 Signed Impressions: Service Date/Time: Wednesday, January 17, 2018 21:16 - CONCLUSION: No acute fracture. Marcelo Cardona MD Head CT 01/17/18 0000 Signed Impressions: Service Date/Time: Wednesday, January 17, 2018 21:25 - CONCLUSION: 1. No acute intracranial abnormality. 2. Left nasal fracture. Marcelo Cardona MD Cervical Spine CT 01/17/18 0000 Signed Impressions: Service Date/Time: Wednesday, January 17, 2018 21:25 - CONCLUSION: 1. No fracture or subluxation. 2. Multilevel degenerative changes. 3. Degenerative retrolisthesis C3 on 4 Marcelo Cardona MD Objective Remarks GENERAL: Elderly female in no acute distress. HEENT: Left eye is swollen closed. Significant facial swelling/hematoma due to injury. Nontender. CARDIOVASCULAR: Regular rate and rhythm. Grade 2 systolic murmur appreciated. No chest tenderness to palpation. RESPIRATORY: No obvious rhonchi or wheezing. Clear to auscultation. Breath sounds equal bilaterally. GASTROINTESTINAL: Abdomen soft, non-tender, nondistended. BS normal. MUSCULOSKELETAL: Extremities without clubbing, cyanosis, or edema. No obvious deformities. NEUROLOGICAL: Awake, alert and oriented x4. No focal neurologic deficits. Moving both upper and lower extremities spontaneously. Medications and IVs Current Medications Medications (Trade) Dose Ordered Sig/Valdemar Route Start Time Stop Time Status Last Admin (Augmentin) 875 mg Q12HR PO 01/18/18 09:00 01/18/18 09:56 (D50w (Vial) Inj) 50 ml UNSCH PRN IV PUSH 01/17/18 23:00 (Glucagon Inj) 1 mg UNSCH PRN OTHER 01/17/18 23:00 (NovoLOG SUPPLEMENTAL SCALE) 1 ACHS SLIDING SCALE SQ 01/18/18 08:00 Sodium Chloride 1,000 ml @ 100 mls/hr Q10H IV 01/17/18 22:56 01/18/18 12:27 (NS Flush) 2 ml UNSCH PRN IV FLUSH 01/17/18 23:00 (NS Flush) 2 ml BID IV FLUSH 01/18/18 09:00 (Zofran Inj) 4 mg Q6H PRN IVP 01/17/18 23:00 (Tylenol) 650 mg Q6H PRN PO 01/17/18 23:00 (Morphine Inj) 2 mg Q3H PRN IV PUSH 01/17/18 23:00 (Nataly-Colace) 1 tab BID PO 01/18/18 09:00 01/18/18 09:56 (Milk Of Magnesia Liq) 30 ml Q12H PRN PO 01/17/18 23:00 (Senokot) 17.2 mg Q12H PRN PO 01/17/18 23:00 (Dulcolax Supp) 10 mg DAILY PRN RECTAL 01/17/18 23:00 (Lactulose Liq) 30 ml DAILY PRN PO 01/17/18 23:00 (Buspar) 20 mg BID PO 01/18/18 09:00 01/18/18 09:56 Patient Own Medication PT OWN MED: Dextromethorphan HBr-Quinid... BID PO 01/18/18 09:00 Future Hold A/P Problem List: (1) Fall ICD Code: W19.XXXA - Unspecified fall, initial encounter (2) Orbital floor fracture ICD Code: S02.30XA - Fracture of orbital floor, unspecified side, initial encounter for closed fracture (3) Traumatic hematoma of face ICD Code: S00.83XA - Contusion of other part of head, initial encounter Status: Acute (4) Epistaxis ICD Code: R04.0 - Epistaxis (5) DM (diabetes mellitus) ICD Code: E11.9 - Type 2 diabetes mellitus without complications Assessment and Plan Fall/ Left orbital floor Fx/ Nasal fracture S/p mechanical fall at [facility], unwitnessed, pt does not believe she lost consciousness. CT Head/C-Spine w/ no acute findings. CT Maxillofacial w/ displaced fracture through floor of left orbit with slight herniation of inferior oblique musculature, no impingement. Evaluated by trauma surgery. - oral surgery consult requested. - Analgesics/antiemetics. Ice packs as needed. - PT/ OT. Epistaxis/ Anemia Secondary to above, w/ associated nausea/vomiting, bleeding now controlled. Hemoglobin has decreased overnight. - Will monitor, repeat labs in am. - follow CBC, transfuse as needed. DM Glucose well controlled. - Sliding scale w/ Accu-checks. - Hold Metformin for now. DVT Prophylaxis: SCD/Teds Discharge Planning Await oral surgery eval, CBC stability, may need SNF Problem Qualifiers (1) Traumatic hematoma of face: Qualified Codes: S00.83XA - Contusion of other part of head, initial encounter Karthik Powers DO Jan 18, 2018 13:06
[2018-01-18] MEDS: ACETAMINOPHEN 325 MG TAB PO PRN (17:28)
--- NOTE | 2018-01-18 18:30 | PD.CONS ---
History of Present Illness Service Plastic surgery Consult Requested By Primary team Reason for Consult Facial fracture Primary Care Physician Zita Jacobs MD Diagnoses: (1) Orbital floor fracture (2) Nasal fracture History of Present Illness History obtained from chart/daughter as pt poor historian. 87F with a PMH of HTN, Hyperlipidemia, DM and Dementia who is brought to the ER by EMS after a fall with significant left-sided facial swelling and hematoma. Patient seen with her daughter in the room. Patient denies pain. Upon prompting she endorses mild facial pain. She denies vision changes except for double vision with upward gaze. She is edentulous. Except as stated in HPI: all other systems reviewed are Neg Past Medical History HTN, Hyperlipidemia, DM and Dementia Past Surgical History None Allergies: Coded Allergies: Milk Containing Products (Verified Allergy, Unknown, 01/17/18) codeine (Verified Allergy, Unknown, 01/17/18) erythromycin base (Verified Allergy, Unknown, 01/17/18) pollen extracts (Verified Allergy, Unknown, 01/17/18) Family History Noncontributory to presenting complaint Social History Negative for alcohol, tobacco or drugs. Past Family Social History Allergies: Coded Allergies: Milk Containing Products (Verified Allergy, Unknown, 01/17/18) codeine (Verified Allergy, Unknown, 01/17/18) erythromycin base (Verified Allergy, Unknown, 01/17/18) pollen extracts (Verified Allergy, Unknown, 01/17/18) Physical Exam Vital Signs Vital Signs Date Time Temp Pulse Resp B/P (MAP) Pulse Ox O2 Delivery O2 Flow Rate FiO2 01/18/18 15:57 99.0 61 18 115/53 (73) 96 01/18/18 14:20 98.4 57 18 123/60 (81) 99 01/18/18 11:58 98.2 54 16 100/50 (67) 99 01/18/18 08:10 97.7 62 18 127/58 (81) 97 01/18/18 04:07 56 17 107/53 (71) 93 01/18/18 00:29 98.1 63 17 101/51 (68) 95 01/17/18 21:16 49 15 96 Room Air 01/17/18 21:07 98.1 50 18 158/76 (103) 95 Physical Exam No acute distress judgment impaired patient appears confused though pleasant moist mucous membranes skin without rash respirations nonlabored moves all 4 extremities to command digits warm and well-perfused Patient with bilateral facial ecchymoses left much worse than right Extraocular muscles intact and without restrictions in upward gaze Vision appears intact grossly V1 to 3 intact and symmetric bilaterally Cranial nerves intact by exam No nasal septal hematoma Edentulous except for to left lower mandibular teeth with caries No intraoral lacerations No enopthalmos/vertical orbital dystopia appreciated Laboratory Laboratory Tests Test 01/17/18 21:15 01/18/18 06:15 White Blood Count 6.7 7.2 Red Blood Count 4.10 3.40 Hemoglobin 13.1 10.9 Hematocrit 39.0 32.5 Mean Corpuscular Volume 95.0 95.5 Mean Corpuscular Hemoglobin 31.9 31.9 Mean Corpuscular Hemoglobin Concent 33.6 33.4 Red Cell Distribution Width 13.3 13.5 Platelet Count 163 133 Mean Platelet Volume 10.3 11.3 Neutrophils (%) (Auto) 52.2 73.7 Lymphocytes (%) (Auto) 36.1 18.5 Monocytes (%) (Auto) 7.9 7.6 Eosinophils (%) (Auto) 3.1 0.0 Basophils (%) (Auto) 0.7 0.2 Neutrophils # (Auto) 3.5 5.3 Lymphocytes # (Auto) 2.4 1.3 Monocytes # (Auto) 0.5 0.5 Eosinophils # (Auto) 0.2 0.0 Basophils # (Auto) 0.0 0.0 CBC Comment DIFF FINAL DIFF FINAL Differential Comment Blood Urea Nitrogen 20 20 Creatinine 1.06 1.01 Random Glucose 146 168 Calcium Level 9.3 8.8 Sodium Level 140 139 Potassium Level 3.9 3.8 Chloride Level 102 105 Carbon Dioxide Level 30.2 28.4 Anion Gap 8 6 Estimat Glomerular Filtration Rate 49 52 Total Creatine Kinase 76 Total Protein 5.0 Albumin 2.8 Alkaline Phosphatase 64 Aspartate Amino Transf (AST/SGOT) 22 Alanine Aminotransferase (ALT/SGPT) 20 Total Bilirubin 0.2 Result Diagram: 01/18/1861401/18/[address] images personally reviewed by me showing left orbital floor fracture, less than 2 cm, as well as minimally displaced nasal fracture Assessment and Plan Problem List: (1) Orbital floor fracture ICD Codes: S02.30XA - Fracture of orbital floor, unspecified side, initial encounter for closed fracture (2) Nasal fracture ICD Codes: S02.2XXA - Fracture of nasal bones, initial encounter for closed fracture Status: Acute Assessment and Plan 87-year-old female with left orbital floor fracture and nasal fracture Lengthy discussion had with the patient's daughter and patient regarding the risks benefits alternative treatments Discussed that in the absence of entrapment, the indication for surgery would be to prevent enopthalmos However given the size of her fracture and her current exam, this is less likely Given her age, dementia, and comorbidities, the patient and patient's daughter elected to assume the risks of nonoperative treatment of the above fractures Please consult ophthalmology to rule out occult injury to the left globe Patient may follow-up in my clinic as an outpatient in 1-2 weeks Please call with questions/concerns Problem Qualifiers (1) Nasal fracture: Qualified Codes: S02.2XXA - Fracture of nasal bones, initial encounter for closed fracture Driss Berkowitz MD Jan 18, 2018 18:30
[2018-01-19] VITALS (8 sets, daily range): BP systolic 99–159; BP diastolic 55–70; PULSE 55–66; RESP 16–20; TEMP 97.4–99.6; O2SAT 94–97
[2018-01-19] MEDS: SODIUM CHLOR 0.9% 1000 ML INJ 1,000 ML IV SCH ×2 (04:56→12:02)
[2018-01-19] MEDS: SODIUM CHLORIDE 0.9% FLUSH 10 ML FLUSH IV FLUSH SCH ×2 (08:15→20:38)
[2018-01-19] MEDS: INSULIN ASPART SUPPLEMENTAL SCALE SQ SCH ×4 (08:15→21:00)
[2018-01-19] MEDS: PRAVASTATIN SOD 40 MG TAB PO SCH (08:17)
[2018-01-19] MEDS: DOCUSATE SODIUM 50 MG/SENNA 8.6 MG TAB PO SCH ×2 (08:18→20:38)
[2018-01-19] MEDS: AMOXICILLIN/CLAVULANATE K 875 MG TAB PO SCH ×2 (08:18→20:38)
[2018-01-19] MEDS: busPIRone HCL 10 MG TAB PO SCH ×2 (08:18→20:38)
[2018-01-19] MEDS: ACETAMINOPHEN 325 MG TAB PO PRN ×3 (12:01→20:42)
[2018-01-19 12:04] LABS: HEMATOCRIT 32.2 % (35.0-46.0); MEAN CELL VOLUME 95.5 FL (80.0-100.0); MEAN CORPUSCULAR HEMOGLOBIN 32.5 PG (27.0-34.0); MEAN CORPUSCULAR HGB CONC 34.1 % (32.0-36.0); MEAN PLATELET VOLUME 11.2 FL (7.0-11.0); PLATELET COUNT 124 TH/MM3 (150-450); RED BLOOD COUNT 3.38 MIL/MM3 (4.00-5.30); RED CELL DISTRIBUTION WIDTH 13.7 % (11.6-17.2); WHITE BLOOD COUNT 7.1 TH/MM3 (4.0-11.0)
[2018-01-19 12:15] LABS: BICARBONATE 27.6 MEQ/L (21.0-32.0); CALCIUM 9.3 MG/DL (8.5-10.1); CREATININE 0.9 MG/DL (0.50-1.00); MAGNESIUM 1.8 MG/DL (1.5-2.5)
--- NOTE | 2018-01-19 15:24 | HHI.PR ---
Subjective Remarks Patient is confused but denies any pain. She denies eye pain or blurry vision. Objective Vitals Vital Signs Date Time Temp Pulse Resp B/P (MAP) Pulse Ox O2 Delivery O2 Flow Rate FiO2 01/19/18 12:41 99.6 62 16 131/60 (83) 97 01/19/18 08:00 98.1 66 20 125/62 (83) 95 01/19/18 05:09 98.8 65 20 135/62 (86) 96 01/19/18 00:29 98.3 66 18 99/55 (70) 94 01/18/18 20:27 98.4 63 18 111/59 (76) 94 01/18/18 15:57 99.0 61 18 115/53 (73) 96 I/O 01/18/18 01/18/18 01/18/18 01/19/18 01/19/18 01/19/18 07:00 15:00 23:00 07:00 15:00 23:00 Intake Total 1500 ml Balance 1500 ml Intake IV Total 1500 ml # Voids 1 Result Diagram: 01/19/18 1119 01/19/18 1119 Objective Remarks GENERAL: Elderly female in no acute distress. HEENT: Can open both eyes but there is some ecchymoses. No pain with eye movement. Ecchymoses involving the whole face and neck region. Non tender. CARDIOVASCULAR: Regular rate and rhythm. Grade 2 systolic murmur appreciated. No chest tenderness to palpation. RESPIRATORY: No obvious rhonchi or wheezing. Clear to auscultation. Breath sounds equal bilaterally. GASTROINTESTINAL: Abdomen soft, non-tender, nondistended. BS normal. MUSCULOSKELETAL: Extremities without clubbing, cyanosis, or edema. No obvious deformities. NEUROLOGICAL: Awake and alert. Oriented to self and place only. Moves all extremities. A/P Problem List: (1) Fall ICD Code: W19.XXXA - Unspecified fall, initial encounter (2) Orbital floor fracture ICD Code: S02.30XA - Fracture of orbital floor, unspecified side, initial encounter for closed fracture (3) Traumatic hematoma of face ICD Code: S00.83XA - Contusion of other part of head, initial encounter Status: Acute (4) Epistaxis ICD Code: R04.0 - Epistaxis (5) DM (diabetes mellitus) ICD Code: E11.9 - Type 2 diabetes mellitus without complications Assessment and Plan Fall/ Left orbital floor Fx/ Nasal fracture S/p mechanical fall at [facility], unwitnessed, pt does not believe she lost consciousness. CT Head/C-Spine w/ no acute findings. CT Maxillofacial w/ displaced fracture through floor of left orbit with slight herniation of inferior oblique musculature, no impingement. Evaluated by trauma surgery. - Plastic surgery evaluated the patient and per discussion with family, elected to treat conservatively. - No eye symptoms or change in vision. Swelling improved. Defer Ophthalmology consult for now. - Analgesics/antiemetics. Ice packs as needed. - PT/ OT. Epistaxis/ Anemia Secondary to above, w/ associated nausea/vomiting, bleeding now controlled. - H&H stable and improved today. DM Glucose well controlled. - Sliding scale w/ Accu-checks. - Hold Metformin for now. DVT Prophylaxis: SCD/Teds Discharge Planning Will need SNF placement once midnight stay rules fulfilled. SOFIA KHAN. Problem Qualifiers (1) Traumatic hematoma of face: Qualified Codes: S00.83XA - Contusion of other part of head, initial encounter Jm Murray MD Jan 19, 2018 15:24
[2018-01-19] MEDS ORDERED: MORPHINE SULFATE 4 MG/ML INJ IV PUSH PRN (20:45)
[2018-01-20] VITALS (10 sets, daily range): BP systolic 124–157; BP diastolic 60–72; PULSE 57–80; RESP 16–19; TEMP 97.7–98.6; O2SAT 93–100
--- NOTE | 2018-01-20 00:28 | RADRPT ---
EXAM DATE/TIME: 01/20/2018 00:04 [facility] COMPARISON: CT BRAIN W/O CONTRAST, January 17, 2018, 21:25. INDICATIONS : Trauma. Fell on floor and hit head. RADIATION DOSE: 35.14 CTDIvol (mGy) MEDICAL HISTORY : Dementia. Hypertension. SURGICAL HISTORY : None. ENCOUNTER: Initial ACUITY: 1 day PAIN SCALE: 5/10 LOCATION: cranial TECHNIQUE: Multiple contiguous axial images were obtained of the head. Using automated exposure control and adj ustment of the mA and/or kV according to patient size, radiation dose was kept as low as reasonably a chievable to obtain optimal diagnostic quality images. DICOM format image data is available electro nically for review and comparison. FINDINGS: CEREBRUM: The ventricles are normal for age. Symmetric cortical atrophic changes. 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 No extra-axial fluid collections are seen. POSTERIOR FOSSA: The cerebellum and brainstem are intact. The 4th ventricle is midline. The cerebellopontine angle i s unremarkable. EXTRACRANIAL: The visualized portion of the orbits is intact. Chronic sinusitis left maxillary antra. Stable nasal bone fracture at the base of the left nasal SKULL: The calvaria is intact. No evidence of skull fracture. Small subpleural hematoma over the left anter ior parietal region. CONCLUSION: 1. Stable chronic changes with symmetric cortical atrophy and old lacunar type infarcts. 2. Small cephalhematoma over the anterior left parietal bone. No associated fracture. 3. Stable fracture through the base of the left nasal ala. Chronic sinusitis the left maxillary antra . Deepak Mari MD on January 20, 2018 at 0:22 Board Certified Radiologist. This report was verified electronically.
[2018-01-20] MEDS: SODIUM CHLOR 0.9% 1000 ML INJ 1,000 ML IV SCH ×3 (00:32→20:56)
[2018-01-20] MEDS: INSULIN ASPART SUPPLEMENTAL SCALE SQ SCH ×4 (08:00→20:56)
[2018-01-20] MEDS: SODIUM CHLORIDE 0.9% FLUSH 10 ML FLUSH IV FLUSH SCH ×2 (10:50→20:50)
[2018-01-20] MEDS: DOCUSATE SODIUM 50 MG/SENNA 8.6 MG TAB PO SCH ×2 (10:50→20:51)
[2018-01-20] MEDS: busPIRone HCL 10 MG TAB PO SCH ×2 (10:51→20:51)
[2018-01-20] MEDS: PRAVASTATIN SOD 40 MG TAB PO SCH (10:51)
[2018-01-20] MEDS: AMOXICILLIN/CLAVULANATE K 875 MG TAB PO SCH ×2 (10:51→20:51)
--- NOTE | 2018-01-20 11:32 | HHI.PR ---
Subjective Remarks Continued fall risk. Working with PT. Pain controlled. Will need SNF at discharge. Objective Vital Signs Date Time Temp Pulse Resp B/P (MAP) Pulse Ox O2 Delivery O2 Flow Rate FiO2 01/20/18 08:00 98.1 66 17 142/67 (92) 99 01/20/18 04:00 97.8 71 18 157/72 (100) 93 01/20/18 03:31 98.4 70 18 137/63 (87) 96 01/20/18 02:30 97.9 63 18 146/60 (88) 95 01/20/18 01:30 98.1 65 18 130/62 (84) 95 01/20/18 00:30 98.4 62 16 142/70 (94) 96 01/20/18 00:00 97.7 57 18 137/62 (87) 98 01/19/18 23:30 97.4 59 18 159/70 (99) 96 01/19/18 22:39 97 01/19/18 20:00 98.1 60 18 139/66 (90) 95 01/19/18 16:00 97.9 55 16 130/59 (82) 96 01/19/18 12:41 99.6 62 16 131/60 (83) 97 I/O 01/19/18 01/19/18 01/19/18 01/20/18 01/20/18 01/20/18 07:00 15:00 23:00 07:00 15:00 23:00 # Voids 1 # Bowel Movements 1 Result Diagram: 01/19/18 1119 01/19/18 1119 Objective Remarks 87 year old female status post fall, admitted with orbital floor fracture and nasal fracture, weakness persisting. Fall/ Left orbital floor Fx/ Nasal fracture S/p mechanical fall at [facility], unwitnessed Will need SNF at discharge Conservative treatments for now Plastic Surgeon following Ophthalmology following Continue PT and OT Epistaxis/ Anemia Epistaxis resolved H/H stabalized Follow H/H Diabetes mellitus type 2 Follow blood sugars Insulin sliding scale Diabetic diet Metformin on hold DVT Prophylaxis SCDs Discharge Planning Transition back to an inpatient rehab setting tomorrow, if stable Michele Rodriguez MD January 20, 2018 11:32
[2018-01-20] MEDS: ACETAMINOPHEN 325 MG TAB PO PRN (13:26)
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
[2018-01-21] VITALS: BP 146/68; PULSE 78; RESP 18; TEMP 98.1; O2SAT 95
[2018-01-21 04:00] VITALS: BP 150/86; PULSE 78; RESP 18; TEMP 97.9; O2SAT 97
[2018-01-21] MEDS: SODIUM CHLOR 0.9% 1000 ML INJ 1,000 ML IV SCH (04:24)
[2018-01-21] MEDS: INSULIN ASPART SUPPLEMENTAL SCALE SQ SCH ×2 (07:58→13:30)
[2018-01-21 08:41] VITALS: BP 136/74; RESP 20
[2018-01-21] MEDS: SODIUM CHLORIDE 0.9% FLUSH 10 ML FLUSH IV FLUSH SCH (09:00)
[2018-01-21] MEDS: DOCUSATE SODIUM 50 MG/SENNA 8.6 MG TAB PO SCH (10:11)
[2018-01-21] MEDS: AMOXICILLIN/CLAVULANATE K 875 MG TAB PO SCH (10:11)
[2018-01-21] MEDS: PRAVASTATIN SOD 40 MG TAB PO SCH (10:11)
[2018-01-21] MEDS: busPIRone HCL 10 MG TAB PO SCH (10:11)
[2018-01-21] MEDS: ACETAMINOPHEN 325 MG TAB PO PRN (11:47)
--- NOTE | 2018-01-21 12:00 | PD.CONS ---
History of Present Illness Service Ophthalmology Consult Requested By Reason for Consult left orbital fracture Primary Care Physician Zita Jacobs MD Diagnoses: History of Present Illness 87 yo F with a h/o of HTN, Hyperlipidemia, DM and dementia who is brought to the ED by EMS after a fall with significant left-sided facial swelling and hematoma. Patient currently [facility] resident, fall was unwitnessed however patient does not believe she lost consciousness. CT Maxillofacial with displaced fracture through floor of left orbit with slight herniation of inferior oblique musculature, left nasal fracture. Patient complains of pain around her left eye but no change in vision. Pt has dementia and cannot remember if she has any past ocular history or surgeries. Past Family Social History Allergies: Coded Allergies: Milk Containing Products (Verified Allergy, Unknown, 01/17/18) codeine (Verified Allergy, Unknown, 01/17/18) erythromycin base (Verified Allergy, Unknown, 01/17/18) pollen extracts (Verified Allergy, Unknown, 01/17/18) Physical Exam Vital Signs Vital Signs Date Time Temp Pulse Resp B/P (MAP) Pulse Ox O2 Delivery O2 Flow Rate FiO2 01/21/18 08:41 20 136/74 (94) 01/21/18 04:00 97.9 78 18 150/86 (107) 97 01/21/18 00:00 98.1 78 18 146/68 (94) 95 01/20/18 20:00 98.6 69 18 154/67 (96) 97 01/20/18 16:00 98.4 80 19 124/70 (88) 100 01/20/18 12:00 98.4 71 19 137/64 (88) 99 Physical Exam Va cc at near OD 20/100, OS 20/100 EOM full OU, no diplopia CVF unable Pupils 2-1 no APD OU IOP normal to palpation OU Anterior exam OD - normal eyelid, C/S W&Q, K clear, AC deep, pupil round, NS OS - normal eyelid, C/S W&Q, K clear, AC deep, pupil round, NS Result Diagram: 01/19/18 1119 01/19/18 1119 Assessment and Plan Problem List: (1) Fracture of left orbital floor ICD Codes: S02.32XA - Fracture of orbital floor, left side, initial encounter for closed fracture Status: Acute Plan: No ocular injury seen on exam. Patient can follow up as outpatient PRN. Janice Hope MD January 21, 2018 12:00
[2018-01-21 12:03] VITALS: BP 119/63; PULSE 85; RESP 20; TEMP 99.4; O2SAT 97
--- NOTE | 2018-01-21 14:28 | HHI.DS ---
Discharge Summary Admission Date Jan 18, 2018 at 09:17 Discharge Date: January 21, 2018 Admitting Diagnosis Inferior orbital wall fracture, hematemesis, epistaxis, CHI (1) Fall ICD Code: W19.XXXA - Unspecified fall, initial encounter Diagnosis: Principal (2) Orbital floor fracture ICD Code: S02.30XA - Fracture of orbital floor, unspecified side, initial encounter for closed fracture Diagnosis: Principal (3) Traumatic hematoma of face ICD Code: S00.83XA - Contusion of other part of head, initial encounter Diagnosis: Principal Status: Acute (4) Epistaxis ICD Code: R04.0 - Epistaxis Diagnosis: Principal (5) DM (diabetes mellitus) ICD Code: E11.9 - Type 2 diabetes mellitus without complications Diagnosis: Principal Procedures None Brief History - From Admission This is an 87-year-old female with a PMH of HTN, Hyperlipidemia, DM and Dementia who is brought to the ER by EMS after a fall with significant left- sided facial swelling and hematoma. Patient currently [facility] resident, fall was unwitnessed however patient does not believe she lost consciousness. Not on anticoagulation. On arrival, BP 158/76, HR 50, O2 sat 95% on RA, Afebrile. CBC unremarkable. Chemistry at baseline. CT Head with no acute findings, left nasal fracture. CT C-spine with no acute fracture. CT Maxillofacial with displaced fracture through floor of left orbit with slight herniation of inferior oblique musculature, left nasal fracture. Humerus X-ray no acute fracture. Pt to be d/c'd from ER w/ outpatient ENT follow up as no emergent intervention needed, however had episode of epistaxis w/ subsequent nausea/ vomiting. Pt [facility] resident, unsafe d/c home at this time. CBC/BMP: 01/19/18 1119 01/19/18 1119 Significant Findings Laboratory Tests Test 01/19/18 11:19 Red Blood Count 3.38 MIL/MM3 (4.00-5.30) Hemoglobin 11.0 GM/DL (11.6-15.3) Hematocrit 32.2 % (35.0-46.0) Platelet Count 124 TH/MM3 (150-450) Mean Platelet Volume 11.2 FL (7.0-11.0) Random Glucose 112 MG/DL (74-106) Sodium Level 146 MEQ/L (136-145) Chloride Level 114 MEQ/L (98-107) Anion Gap 4 MEQ/L (5-15) Estimat Glomerular Filtration Rate 59 ML/MIN (>89) PE at Discharge GENERAL: Elderly female in no acute distress. HEENT: Can open both eyes but there is some ecchymoses. No pain with eye movement. Ecchymoses involving the whole face and neck region. Non tender. CARDIOVASCULAR: Regular rate and rhythm. Grade 2 systolic murmur appreciated. No chest tenderness to palpation. RESPIRATORY: No obvious rhonchi or wheezing. Clear to auscultation. Breath sounds equal bilaterally. GASTROINTESTINAL: Abdomen soft, non-tender, nondistended. BS normal. MUSCULOSKELETAL: Extremities without clubbing, cyanosis, or edema. No obvious deformities. NEUROLOGICAL: Awake and alert. Oriented to self and place only. Moves all extremities. Hospital Course Mrs. Hager is an 87-year-old female. She came in secondary to fall. At baseline she has Alzheimer's disease. This was an unwitnessed fall. She is found to have a fracture of her nose and left inferior portion of her orbital fossa. She was evaluated by maxillofacial surgeon who does not recommend surgery. She is evaluated by the specialty foods cook who does not recommend surgery. Alzheimer's disease is present at baseline and contributory. Her daughter would like her mother transition to hospice. Hospice has reviewed this case and will continue to follow this patient as an outpatient. At this point patient is medically clear and stable for discharge. detention facility is offered as an option to the patient and her daughter and the daughter prefers that she be transitioned back to her previous [facility] with a better monitor status. She is medically stable and cleared for discharge when bed is available. Pt Condition on Discharge: Deteriorating Discharge Disposition: [facility] Discharge Time: > 30 minutes Discharge Instructions DIET: Follow Instructions for: As Tolerated, No Restrictions Activities you can perform: Regular-No Restrictions Follow up Referrals: PCP Follow-up - 2 Weeks Continued Medications: Amlodipine (Amlodipine) 2.5 Mg Tab 2.5 MG PO DAILY for Blood Pressure Management, #30 TAB 0 Refills Amoxicillin-Clavulanate Liq (Augmentin Es-600 Liq) 600-42.9 Mg/5 Ml Susp 600 MG PO BID for Infection for 10 Days, ML 0 Refills Not for adults, adolescents, or children >/= 40kg. Not interchangeable with 200 mg/5 mL or 400 mg/5 mL due to clavulanic acid. 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, #60 CAP 0 Refills Lisinopril-Hctz (Lisinopril-Hctz) 20-12.5 Mg Tab 1 TAB PO DAILY for Blood Pressure Management, #30 TAB 0 Refills Loratadine (Claritin) 10 Mg Cap 10 MG PO DAILY for Allergy Management for 10 Days, #10 CAP 0 Refills Melatonin (Melatonin) 5 Mg Tab 3 MG PO HS for Provide Good Sleep, TAB 0 Refills Metformin (Metformin) 500 Mg Tab 500 MG PO DAILY for Blood Sugar Management, #30 TAB 0 Refills With a meal Pravastatin (Pravastatin) 40 Mg Tab 40 MG PO DAILY for Cholesterol Management, #30 TAB 0 Refills Discontinued Medications: Aspirin (Aspirin) 81 Mg Chew 81 MG CHEW DAILY, TAB 0 Refills Hydrocodone-Acetaminophen (Aladdin) 5 Mg-325 Mg Tab 1 TAB PO Q6H PRN for PAIN, #15 TAB 0 Refills Michele Rodriguez MD January 21, 2018 14:28
[2018-01-21 16:24] VITALS: BP 121/73; PULSE 73; RESP 20; TEMP 98.3; O2SAT 99
== END 2018-01-21 17:15 | DRG 125 ==
LOC: NEPE 20:58 → NEDA 22:59 → NEPFCDU 23:47 → OBSVTOIN 01-18 09:17 → N05A 01-18 14:14
PROVIDERS: ADMIT Family Medicine; ATTEND Hospitalist
DX: S02.32XA Fracture of orbital floor, left side, initial encounter for closed fracture (principal); K92.0 Hematemesis; E11.9 Type 2 diabetes mellitus without complications; G30.9 Alzheimer's disease, unspecified; F02.80 Dementia in other diseases classified elsewhere, unspecified severity, without behavioral disturbance, psychotic disturbance, mood disturbance, and anxiety; I10 Essential (primary) hypertension; D64.9 Anemia, unspecified; S02.2XXA Fracture of nasal bones, initial encounter for closed fracture; H53.2 Diplopia; S00.83XA Contusion of other part of head, initial encounter; S40.022A Contusion of left upper arm, initial encounter; E78.5 Hyperlipidemia, unspecified; E20.9 Hypoparathyroidism, unspecified; W19.XXXA Unspecified fall, initial encounter; S50.12XA Contusion of left forearm, initial encounter; R04.0 Epistaxis; Z88.5 Allergy status to narcotic agent; Z88.8 Allergy status to other drugs, medicaments and biological substances; Z88.1 Allergy status to other antibiotic agents; Z91.011 Allergy to milk products; Z79.82 Long term (current) use of aspirin; Z79.84 Long term (current) use of oral hypoglycemic drugs
CPT/HCPCS: 70450; 70486; 72125; 73060; 73120; 80048; 80053; 82550; 82948; 83735; 85025; 85027; G8987-GP; G8988-GP; J1815; J2405; J7030; J7040